=== PATIENT | male | born 1950 | race Hispanic/Latino ===

== ENCOUNTER → 2019-05-22 | Outpatient (CLI) | payer MEDICARE ==
[~2019-05-22] VITALS: Ht 175.3 cm; Wt 78.1 kg
[~2019-05-22] MED LIST: CEFTRIAXONE SODIUM 1 GM IVP SCH; LISI10TA7 PO; TAMS-1 PO
[2019-05-22 16:01] LABS: BASOPHILS % (AUTO) 0.7 % (0.0-5.0); EOSINOPHILS % (AUTO) 2.3 % (0.0-8.0); HEMATOCRIT 45.9 % (42-54); LYMPHOCYTES % (AUTO) 25.3 % (21.0-51.0); MEAN CORPUSCULAR HEMOGLOBIN 30.8 pg (27.0-33.0); MEAN CORPUSCULAR HGB CONC 33.3 g/dL (32.0-36.0); MEAN CORPUSCULAR VOLUME 92.5 fL (79-99); MONOCYTES % (AUTO) 7.3 % (3.0-13.0); PLATELET COUNT (AUTO) 240 K/uL (130-400); RED BLOOD CELL COUNT(AUTO) 4.96 MIL/uL (4.50-6.20); RED CELL DISTRIBUTION WIDTH 13.2 % (11.0-15.5); WHITE BLOOD COUNT (AUTO) 6.9 K/uL (4.8-10.8)
[2019-05-22 16:12] LABS: CREATININE 0.9 mg/dL (0.5-1.5); POTASSIUM 4.5 mmol/L (3.5-5.1)
[2019-05-22 16:26] VITALS: BP 195/85
--- NOTE | 2019-05-22 16:55 | NUR ---
quan ok per dr. johnson
== END | disposition home or self-care (01) ==
LOC: DAH 10:00 → EDSTATUS 14:00
PROVIDERS: ATTEND Urology
DX: Z01.818 Encounter for other preprocedural examination (principal); N30.01 Acute cystitis with hematuria; Z79.899 Other long term (current) drug therapy; Z82.49 Family history of ischemic heart disease and other diseases of the circulatory system
CPT/HCPCS: 36415; 80048; 85025; 93005; A6260